=== PATIENT | male | born 1935 | race Caucasian/White ===

== ENCOUNTER 2018-12-02 19:53 | Emergency (ER) | payer OTHER, BC ==
--- NOTE | 2018-12-02 19:59 | PDOC ---
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 Pt reported he was walking down the stairs, and suddenly fell down 6 stairs. He denied head injury, LOC, vomiting, chest pain, shortness of breath. Pt admitted to right sided lateral chest wall pain, worse with inspiration and palpation. Pt admitted to drinking 2 beers tonight. Allergies: NKDA ETOH - denied every day use Past History - Past Medical History Allergies/Adverse Reactions: Allergies Allergy/AdvReac Type Severity Reaction Status Date / Time No Known Allergies Allergy Verified 12/02/18 20:16 Home Medications: Ambulatory Orders Unobtainable 12/03/18 Review of Systems - Review of Systems Able to Perform ROS?: Yes Comments:: 12/02/18 20:18 General: denied fever, chills, generalized weakness. HEENT: denied sore throat, rhinorrhea, ear pain. Heart: denied chest pain, palpitations, syncope, diaphoresis. Respiratory: denied shortness of breath, cough, sputum production, hemoptysis. Chest: Admitted to chest wall pain. Abdomen: denied abdominal pain, nausea, vomiting, diarrhea, constipation, blood in stool. : denied dysuria, increased urinary frequency, hematuria, urinary incontinence , flank pain. Back: denied back pain. Musculoskeletal: denied joint pain, muscle pain, joint swelling. Neurological: denied headache, dizziness, numbness, tingling, weakness. Skin: denied rash, laceration, abrasion. *Physical Exam - Physical Exam Comments: 12/02/18 20:18 Constitutional: Well-nourished, Well-developed, appearing stated age. HEENT: head is normocephalic, atraumatic. no scalp hemtoma. no sr sign. no raccoon eyes. no facial bone tenderness to palpation. EOMI. PERRLA. Neck: supple. Full ROM. no mildline c-spine tenderness to palpation. Heart: regular rhythm. no murmurs, rubs or gallops. Lungs: clear to auscultation bilaterally. no crackles, rhonchi or wheezing. no stridor. Abdomen: soft, nontender. normal bowel sounds. no rebound, guarding, masses. Extremities: peripheral pulses intact. no lower extremity edema. Back: no midline T-spine, L-spine tenderness to palpation. Hips: no tenderness to palpation of bilateral hips. no LE shortening or external rotation. Neurological: CN 2-12 grossly intact. moves all four extremities. Psych: awake, alert, oriented x3. follows commands. answers questions appropriately. Skin: no bruising to anterior/lateral/posterior chest wall or abdomen. Procedures - Bedside Ultrasound Bedside Ultrasound: Focused Assessment w/Sonography for Trauma (Negative FAST in RUQ/LUQ/suprapubic/subxiphoid views. Positive lung sliding bilaterally.) ED Treatment Course - LABORATORY CBC & Chemistry Diagram: 12/02/18 20:05 12/02/18 20:05 - RADIOLOGY Radiology Studies Ordered: 12/03/18 00:53 CT head noncontrast, CT cervical spine noncontrast, CT chest with IV contrast, CXR, pelvis XR Medical Decision Making - Medical Decision Making 12/02/18 20:20 83 year old male with above PMH presented to ED for mechanical fall down 6 stairs, complaining of right sided lateral chest wall pain. Examination significant for right sided lateral chest wall tenderness to palpation. Initial Vital Signs Temp Pulse Resp BP Pulse Ox 97.1 F L 102 H 19 173/80 H 96 12/02/18 19:53 12/02/18 19:53 12/02/18 19:53 12/02/18 19:53 12/02/18 19:53 Afebrile. Tachycardia. No tachypnea. Hypertensive. No hypoxia on room air. Vital Signs Pulse Rate 107 H 12/02/18 20:34 Respiratory Rate 16 12/02/18 20:34 Blood Pressure 156/91 12/02/18 20:34 O2 Sat by Pulse Oximetry (%) 97 12/02/18 20:34 HTN improved. EKG performed at 2037: rate 110, regular rhythm, normal axis, normal intervals, no acute ST changes. Labs ordered: CBC, CMP, trop, TSH, coags, ETOH level, UA/UC Imaging ordered: CT head noncon, CT cervical spine noncon, CT chest with IV contrast, pelvis XR, CXR Medications ordered: tylenol IV -Pt receiving 1L normal saline bolus from EMS 12/02/18 20:35 CBC WBC 7.4 K/mm3 (4.0-10.0) 12/02/18 20:05 RBC 3.95 M/mm3 (4.00-5.60) L 12/02/18 20:05 Hgb 12.3 GM/dL (11.7-16.9) 12/02/18 20:05 Hct 36.6 % (35.4-49) 12/02/18 20:05 MCV 92.8 fl (80-96) 12/02/18 20:05 MCH 31.2 pg (25.7-33.7) 12/02/18 20:05 MCHC 33.6 g/dl (32.0-35.9) 12/02/18 20:05 RDW 13.3 % (11.9-15.9) 12/02/18 20:05 Plt Count 166 K/MM3 (134-434) 12/02/18 20:05 MPV 7.8 fl (7.5-11.1) 12/02/18 20:05 Absolute Neuts (auto) 4.0 K/mm3 (1.5-8.0) 12/02/18 20:05 Neutrophils % 54.0 % (42.8-82.8) 12/02/18 20:05 Lymphocytes % 37.0 % (8-40) 12/02/18 20:05 Monocytes % 6.8 % (3.8-10.2) 12/02/18 20:05 Eosinophils % 1.8 % (0-4.5) 12/02/18 20:05 Basophils % 0.4 % (0-2.0) 12/02/18 20:05 Nucleated RBC % 0 % (0-0) 12/02/18 20:05 No leukocytosis. No anemia. INR, PTT INR 0.94 (0.83-1.09) 12/02/18 20:05 12/02/18 20:58 CMP Sodium 140 mmol/L (136-145) 12/02/18 20:05 Potassium 3.9 mmol/L (3.5-5.1) 12/02/18 20:05 Chloride 106 mmol/L (98-107) 12/02/18 20:05 Carbon Dioxide 25 mmol/L (21-32) 06/15/19 20:05 Anion Gap 10 MMOL/L (8-16) 12/02/18 20:05 BUN 16.2 mg/dL (7-18) 12/02/18 20:05 Creatinine 0.9 mg/dL (0.55-1.3) 12/02/18 20:05 Est GFR (CKD-EPI)AfAm 90.58 12/02/18 20:05 Est GFR (CKD-EPI)NonAf 78.15 12/02/18 20:05 Random Glucose 113 mg/dL (74-106) H 12/02/18 20:05 Calcium 8.2 mg/dL (8.5-10.1) L 12/02/18 20:05 Magnesium 2.2 mg/dL (1.8-2.4) 12/02/18 20:05 Total Bilirubin 0.1 mg/dL (0.2-1) L 12/02/18 20:05 AST 58 U/L (15-37) H 12/02/18 20:05 ALT 33 U/L (13-61) 12/02/18 20:05 Alkaline Phosphatase 96 U/L (45-117) 12/02/18 20:05 Troponin I < 0.02 ng/ml (0.00-0.05) 12/02/18 20:05 Total Protein 6.8 g/dl (6.4-8.2) 12/02/18 20:05 Albumin 3.2 g/dl (3.4-5.0) L 12/02/18 20:05 TSH 3.40 uIU/ml (0.358-3.74) 12/02/18 20:05 Corrected calcium 8.4 No electrolyte abnormalities. No VIRAJ. Mild AST elevation - consistent with ETOH use TSH wnl ETOH - 168 12/02/18 21:11 Urine Test Results Urine Color Yellow 12/02/18 20:40 Urine Appearance Clear 12/02/18 20:40 Urine pH 6.5 (5.0-8.0) 12/02/18 20:40 Ur Specific [place] 1.010 (1.010-1.035) 12/02/18 20:40 Urine Protein Negative (NEGATIVE) 12/02/18 20:40 Urine Glucose (UA) Negative (NEGATIVE) 12/02/18 20:40 Urine Ketones Negative (NEGATIVE) 12/02/18 20:40 Urine Blood Negative (NEGATIVE) 12/02/18 20:40 Urine Nitrite Negative (NEGATIVE) 12/02/18 20:40 Urine Bilirubin Negative (NEGATIVE) 12/02/18 20:40 Ur Leukocyte Esterase Negative (NEGATIVE) 12/02/18 20:40 Negative for UTI. 12/02/18 21:[address] Alegre's read: at least 3 right sided rib fractures. -Pending CT chest and official CXR report Medications ordered: Lidoderm patch 12/02/18 22:27 corporate technical recruiter asked to send CTs over to imaging dictaphone technician. 12/02/18 22:38 Imaging at imaging dictaphone technician. Pending official reads. 12/02/18 23:08 Pelvis XR my read: no fracture/dislocation. -Pending official read. 12/02/18 23:52 CT cervical spine report: HISTORY: Patient fell COMPARISON: None. FINDINGS: Negative for cervical spine fracture or malalignment. Degenerative changes. Small right-sided pneumothorax which will be discussed on the chest CT. One or more of the following dose reduction techniques were used: automated exposure control,adjustment of the mA and/or kV according to patient size, use of iterative reconstructive technique. CT chest report: FINDINGS: Positive for acute fractures of the right fourth, fifth, sixth, seventh, eighth, ninth and 10th ribs. The fractures are predominantly lateral and posterior. Some of the ribs are fractured in 2 places. Some of the rib fractures are displaced. There is a small to moderate right pleural effusion which measures transudate rather than blood. There is a very small resultant right-sided pneumothorax, probably less than 5%. Left lung is clear. No acute abnormalities of the mediastinal soft tissue/vessels. Advanced atherosclerotic changes descending thoracic aorta noted with plaque and intimal ulcerations. CT head report: FINDINGS: Involutional changes. No acute intracranial abnormality. No hemorrhage. Osseous structures are intact. Mucosal thickening and fluid in the bilateral maxillary and ethmoid sinuses. Mucosal thickening in the sphenoid and frontal sinuses Pt to be transferred to [place]. Transfer initiated. Pt placed on nonrebreather. 12/03/18 00:15 Dr. Alegre spoke with Dr. Saenz at [facility], pt accepted for transfer. Patient and family member at bedside informed. Pending transfer. 12/03/18 01:08 [address] route to [facility] with EMS. *DC/Admit/Observation/Transfer Diagnosis at time of Disposition: Multiple rib fractures, Fall, Alcohol intoxication, Elevated AST (SGOT), Pneumothorax - Discharge Dispostion Disposition: TRANSFER ACUTE CARE/OTHER HOSP Condition at time of disposition: Stable - Referrals Referrals: Chiara Li MD [Primary Care Provider] - - Patient Instructions Printed Discharge Instructions: Aspartate Aminotransferase, DI for Rib Fracture , How to Prevent Falls - Post Discharge Activity
[2018-12-02 20:16] VITALS: BMI 21.9
[2018-12-02 20:21] LABS: BASO % 0.4 % (0-2.0); EOS % 1.8 % (0-4.5); HEMATOCRIT 36.6 % (35.4-49); HEMOGLOBIN 12.3 GM/dL (11.7-16.9); MCH 31.2 pg (25.7-33.7); MCHC 33.6 g/dl (32.0-35.9); MEAN CELL VOLUME 92.8 fl (80-96); MEAN PLT VOLUME 7.8 fl (7.5-11.1); MONO % 6.8 % (3.8-10.2); PLATELET COUNT 166 K/MM3 (134-434); RBC 3.95 M/mm3 (4.00-5.60); RDW 13.3 % (11.9-15.9); WHITE BLOOD COUNT 7.4 K/mm3 (4.0-10.0)
--- NOTE | 2018-12-02 20:36 | PDOC ---
Documentation entered by Gene Goldstein SCRIBE, acting as scribe for Katarzyna Alegre DO. Katarzyna Alegre DO: This documentation has been prepared by the Triston farias Daniel, SCRIBE, under my direction and personally reviewed by me in its entirety. I confirm that the documentation accurately reflects all work, treatment, procedures, and medical decision making performed by me. Attending Attestation - Resident Resident Name: Nelly Knight - ED Attending Attestation I have performed the following: I have examined & evaluated the patient, The case was reviewed & discussed with the resident, I agree w/resident's findings & plan, Exceptions are as noted - HPI HPI: 12/02/18 20:20 The patient is an 83 year old male with a past medical history of pre diabetes and HTN here today for evaluation of chest pain s/p fall. The patient reports that he was walking down a flight of stairs when he suddenly fell midway down. He reports falling down approximately 4 stairs and hitting the right side of his chest. He notes right lateral chest pain at this time. Denies any head strike or loss of consciousness. Patient denies headache, lightheadedness. Denies fever, chills. Denies shortness of breath. Denies nausea, vomiting, diarrhea, abdominal pain. Allergies: NKA PCP: Chiara Li - Physicial Exam PE: 12/02/18 20:37 Constitutional: +strong smell of alcohol. Awake, alert, oriented. No acute distress. Head: Normocephalic. Atraumatic Eyes: PERRL. EOMI. Conjunctivae are not pale. ENT: Mucous membranes are moist and intact. Posterior pharynx without exudates or erythema. Uvula midline. Neck: Supple. Full ROM. No lymphadenopathy. Cardiovascular: +mild tachycardia. Regular rhythm. S1, S2 regular. Distal pulses are 2+ and symmetric. Pulmonary/Chest: No evidence of respiratory distress. Clear to auscultation bilaterally No wheezing, rales or rhonchi. Abdominal: Soft and non-distended. There is no tenderness. No rebound, guarding or rigidity. No organomegaly. No palpable masses. Good bowel sounds. Back: No CVA tenderness. Musculoskeletal: +tenderness along spine of right scapula. +tenderness of lateral right ribs. No edema. No cyanosis. No clubbing. Full range of motion in all extremities. No calf tenderness. Radial/pedal pulses are intact and 2+ bilaterally Skin: Skin is warm and dry. No petechiae. No purpura. Neurological: Alert and oriented to person, place, and time. Cranial nerves II -XII are grossly intact. Normal speech. Strength is grossly symmetric. No sensory deficits. Psychiatric: Good eye contact. Normal interaction, affect and behavior. - Medical Decision Making 12/02/18 20:36 I, Dr. Katarzyna Alegre, DO, attest that this document has been prepared under my direction and personally reviewed by me in its entirety. I further attest, that it accurately reflects all work, treatment, procedures and medical decision -making performed by me. 12/02/18 21:33 a/p: 83yo male with mechanical fall down the stairs today after drinking some beers -denies cp/sob/palpitations -no padilla, lightheaded, dizziness -pt denies hitting his head -denies neck or back pain -pt c/o R scapular pain and R lateral rib pain -no sob/cp -denies abd pain -no external signs of trauma -pt denies hip pain, moving all extremities equally -bedside EFAST: neg for ff, neg for pericardial effusion, neg for ptx -will send labs, head ct/c spine ct -ct chest given diffuse ttp along R lateral ribs -will add lidoderm patch -will check etoh level -will monitor and reassess 12/02/18 21:36 pt with multiple rib fx on the R, ct chest with iv contrast ordered etoh 168 12/02/18 21:37 ua neg for blood 12/02/18 23:57 no acute findings on the c spine ct 7 rib fx on the R with small r sided ptx <5% 12/03/18 00:[address] Saenz from trauma at [facility] - accepts pt in transfer 12/03/18 00:08 pt and family updated pt consents to transfer to [facility] 12/03/18 01:13 pt has left for [facility] *DC/Admit/Observation/Transfer Diagnosis at time of Disposition: Multiple rib fractures, Fall, Alcohol intoxication, Elevated AST (SGOT), Pneumothorax - Discharge Dispostion Disposition: TRANSFER ACUTE CARE/OTHER HOSP Condition at time of disposition: Stable - Referrals Referrals: Chiara Li MD [Primary Care Provider] - - Patient Instructions Printed Discharge Instructions: Aspartate Aminotransferase, DI for Rib Fracture , How to Prevent Falls - Post Discharge Activity - Transfer to Acute Care Facility Receiving Facility: [facility]. Accepting Physician:: Dr. Saenz Heart Score/ECG Review - ECG Intrepretation Comment:: 12/02/18 21:37 sinus tach at 110, nl axis, nl interval, q waves septally which are age indeterminate, no acute st/t wave findings
[2018-12-02 20:39] LABS: INR 0.94 (0.83-1.09); PROTHROMBIN TIME (PATIENT) 11.1 SEC (9.7-13.0)
[2018-12-02 20:42] LABS: ACTIVATED PTT 21.7 SECONDS (25.2-36.5)
[2018-12-02] MEDS ORDERED: ACETAMINOPHEN 1000 MG/100 ML VIAL (NON FORMULARY) IVPB ONE (20:50)
[2018-12-02 20:51] LABS: PH,URINE 6.5 (5.0-8.0); URINE APPEARANCE CLEAR; URINE BILIRUBIN NEGATIVE (NEGATIVE); URINE COLOR YELLOW; URINE GLUCOSE (UA) NEGATIVE (NEGATIVE); URINE KETONE NEGATIVE (NEGATIVE); URINE LEUK ESTERASE NEGATIVE (NEGATIVE); URINE NITRITE NEGATIVE (NEGATIVE); URINE PROTEIN NEGATIVE (NEGATIVE); URINE UROBILINOGEN 0.2 mg/dL (0.2-1.0)
[2018-12-02 20:55] LABS: ALBUMIN 3.2 g/dl (3.4-5.0); ALK PHOS 96 U/L (45-117); ANION GAP 10 MMOL/L (8-16); BILIRUBIN,TOTAL 0.1 mg/dL (0.2-1); BLOOD UREA NITROGEN 16.2 mg/dL (7-18); CALCIUM 8.2 mg/dL (8.5-10.1); CHLORIDE 106 mmol/L (98-107); CO2 25 mmol/L (21-32); CREATININE 0.9 mg/dL (0.55-1.3); GLUCOSE,RANDOM 113 mg/dL (74-106); MAGNESIUM 2.2 mg/dL (1.8-2.4); POTASSIUM 3.9 mmol/L (3.5-5.1); SGOT/AST 58 U/L (15-37); SGPT/ALT 33 U/L (13-61); SODIUM 140 mmol/L (136-145); TOT PROT 6.8 g/dl (6.4-8.2)
[2018-12-02] MEDS ORDERED: ACETAMINOPHEN INJECTION 100 ML IVPB ONE (20:57)
[2018-12-02] MEDS ORDERED: LIDOCAINE 5% TOPICAL PATCH TP ONE (21:16)
[2018-12-02] MEDS ORDERED: SODIUM CHLORIDE 500 ML IV STA (21:23)
[2018-12-02] MEDS ORDERED: LIDOCAINE PATCH REMOVAL MC SCH (22:00)
[2018-12-02] MEDS ORDERED: LIDOCAINE 5% TOPICAL PATCH ONE (22:19)
[2018-12-03 00:18] VITALS: BP 153/80; PULSE 110; TEMP 98.2
--- NOTE | 2018-12-03 17:01 | EKG ---
Test Reason : Blood Pressure : / mmHG Vent. Rate : 110 BPM Atrial Rate : 110 BPM P-R Int : 176 ms QRS Dur : 080 ms QT Int : 332 ms P-R-T Axes : 033 001 022 degrees QTc Int : 449 ms POOR DATA QUALITY, INTERPRETATION MAY BE ADVERSELY AFFECTED SINUS TACHYCARDIA WITH PREMATURE ATRIAL COMPLEXES WITH ABERRANT CONDUCTION NONSPECIFIC ST ABNORMALITY ABNORMAL ECG NO PREVIOUS ECGS AVAILABLE Confirmed by MD DARLEEN, RYLEE ([id number]) on 12/03/2018 5:01:12 PM Referred By: Confirmed By:RYLEE MOREJON MD
== END 2018-12-03 01:31 | disposition short-term general hospital (02) ==
LOC: JER 19:53
PROC: 3E0337Z Introduction of Electrolytic and Water Balance Substance into Peripheral Vein, Percutaneous Approach (ICD-10-PCS; principal; 2018-12-02)
PROC: 3E033NZ Introduction of Analgesics, Hypnotics, Sedatives into Peripheral Vein, Percutaneous Approach (ICD-10-PCS; 2018-12-02)
DX: S22.41XA Multiple fractures of ribs, right side, initial encounter for closed fracture (principal); S27.0XXA Traumatic pneumothorax, initial encounter; W10.8XXA Fall (on) (from) other stairs and steps, initial encounter; Y93.89 Activity, other specified; Y92.018 Other place in single-family (private) house as the place of occurrence of the external cause; Y99.8 Other external cause status; F10.120 Alcohol abuse with intoxication, uncomplicated; R94.5 Abnormal results of liver function studies; I10 Essential (primary) hypertension; R73.03 Prediabetes
CPT/HCPCS: 36415; 70450-TC; 71045-TC-FY; 71260-TC; 72125-TC; 72170-TC-FY; 80053; 80307; 81003; 83735; 84443; 84484; 85025; 85610; 85730; 87086; 93005; 93010; 96361; 96374; 99285-25; J0131; J7030

== ENCOUNTER 2021-02-20 11:49 | Inpatient (IN) | payer OTHER, BC ==
[2021-02-20 13:37] LABS: BASO % 0.4 % (0-2.0); EOS % 0.1 % (0-4.5); HEMATOCRIT 41.4 % (35.4-49); HEMOGLOBIN 14.9 GM/dL (11.7-16.9); LYMPH % 14.8 % (8-40); MCH 31.9 pg (25.7-33.7); MCHC 36.1 g/dl (32.0-35.9); MEAN CELL VOLUME 88.5 fl (80-96); MEAN PLT VOLUME 8.5 fl (7.5-11.1); MONO % 8.7 % (3.8-10.2); PLATELET COUNT 248 10^3/uL (134-434); RBC 4.69 M/mm3 (4.00-5.60); RDW 12.9 % (11.9-15.9); WHITE BLOOD COUNT 10.7 K/mm3 (4.0-10.0)
[2021-02-20 13:44] LABS: INR 1.06 (0.83-1.09); PROTHROMBIN TIME (PATIENT) 12.8 SEC (9.7-13.0)
[2021-02-20 13:45] LABS: EPI CELLS 11 /uL (0-25.1); HYALINE CASTS 2 /uL (0-3.1); PH,URINE 6.5 (5.0-8.0); URINE APPEARANCE CLEAR; URINE BACTERIA 9 /uL (0-1359); URINE BILIRUBIN NEGATIVE (NEGATIVE); URINE COLOR YELLOW; URINE GLUCOSE (UA) NEGATIVE (NEGATIVE); URINE KETONE TRACE (NEGATIVE); URINE LEUK ESTERASE NEGATIVE (NEGATIVE); URINE NITRITE NEGATIVE (NEGATIVE); URINE PROTEIN 2+ (NEGATIVE); URINE RBC 9 /uL (0-23.9); URINE UROBILINOGEN 0.2 mg/dL (0.2-1.0); URINE WBC 7 /uL (0-25.8)
[2021-02-20 13:46] LABS: ACTIVATED PTT 30.3 SECONDS (25.2-36.5)
[2021-02-20 13:59] LABS: CHLORIDE 89 mmol/L (98-107); SODIUM 132 mmol/L (136-145)
[2021-02-20 14:01] LABS: ALBUMIN 3.5 g/dl (3.4-5.0); BLOOD UREA NITROGEN 30.4 mg/dL (7-18); CALCIUM 9.1 mg/dL (8.5-10.1); CO2 31 mmol/L (21-32); GLUCOSE,RANDOM 116 mg/dL (74-106); MAGNESIUM 2.5 mg/dL (1.8-2.4)
[2021-02-20] MEDS ORDERED: SODIUM CHLORIDE 0.9% 500 ML INFUS.BAG IV ONE (14:01)
[2021-02-20] MEDS ORDERED: MULTIVITAMINS (DAILY MVI) TABLET (FP) PO ONE (14:02)
[2021-02-20] MEDS ORDERED: THIAMINE HCL 200 MG/2 ML VIAL IVPB ONE (14:02)
[2021-02-20] MEDS ORDERED: FOLIC ACID 1 MG TABLET (FP) PO ONE (14:02)
[2021-02-20 14:04] LABS: CREATININE 2.3 mg/dL (0.55-1.3); SGOT/AST 30 U/L (15-37); SGPT/ALT 20 U/L (13-61)
[2021-02-20 14:06] LABS: BILIRUBIN,TOTAL 0.6 mg/dL (0.2-1); TOT PROT 7.8 g/dl (6.4-8.2)
[2021-02-20 14:07] LABS: ALK PHOS 146 U/L (45-117)
[2021-02-20] MEDS ORDERED: THIAMINE HCL 200 MG/2 ML VIAL ONE (14:08)
[2021-02-20] MEDS ORDERED: FOLIC ACID 1 MG TABLET (FP) ONE (14:08)
[2021-02-20] MEDS ORDERED: MULTIVITAMINS (DAILY MVI) TABLET (FP) ONE (14:08)
[2021-02-20] MEDS ORDERED: amLODIPine BESYLATE 10 MG TABLET (FP) PO ONE (14:26)
[2021-02-20 14:28] LABS: ANION GAP 12 MMOL/L (8-16)
[2021-02-20] MEDS ORDERED: POTASSIUM CHLORIDE TABS 20 MEQ TABLET.ER (FP) PO ONE ×4 (14:40→19:37)
[2021-02-20] MEDS ORDERED: amLODIPine BESYLATE 5 MG TABLET (FP) ONE (15:06)
[2021-02-20 18:22] LABS: CHLORIDE 93 mmol/L (98-107); SODIUM 134 mmol/L (136-145)
[2021-02-20 18:23] LABS: CALCIUM 8.3 mg/dL (8.5-10.1)
[2021-02-20 18:24] LABS: BLOOD UREA NITROGEN 28.5 mg/dL (7-18); CO2 27 mmol/L (21-32); GLUCOSE,RANDOM 97 mg/dL (74-106)
[2021-02-20 18:27] LABS: CREATININE 2.1 mg/dL (0.55-1.3)
[2021-02-20 18:48] LABS: ANION GAP 14 MMOL/L (8-16)
[2021-02-20] MEDS ORDERED: KCL 10 MEQ IVPB 10 MEQ/100 ML INFUS.BAG IVPB ONE (19:37)
[2021-02-20] MEDS: KCL 10 MEQ IVPB 10 MEQ/100 ML INFUS.BAG IVPB SCH ×3 (19:50→22:57)
[2021-02-20] MEDS ORDERED: KCL 10 MEQ IVPB 20 MEQ/200 ML INFUS.BAG IVPB ONE (20:59)
[2021-02-20] MEDS: HEPARIN NA (PORCINE) 5,000 UNITS/ML 1ML VIAL SQ SCH (22:57)
[2021-02-20] MEDS: METOPROLOL TARTRATE 25 MG TABLET (FP) PO SCH (22:57)
[2021-02-21 06:39] LABS: BASO % 0.3 % (0-2.0); EOS % 0.4 % (0-4.5); HEMATOCRIT 39.8 % (35.4-49); HEMOGLOBIN 14.4 GM/dL (11.7-16.9); MCH 32.1 pg (25.7-33.7); MCHC 36.2 g/dl (32.0-35.9); MEAN CELL VOLUME 88.5 fl (80-96); MEAN PLT VOLUME 8.5 fl (7.5-11.1); MONO % 8.7 % (3.8-10.2); NEUT % 73.6 % (42.8-82.8); PLATELET COUNT 246 10^3/uL (134-434); RBC 4.49 M/mm3 (4.00-5.60); RDW 13.3 % (11.9-15.9); WHITE BLOOD COUNT 10.9 K/mm3 (4.0-10.0)
[2021-02-21 07:03] LABS: ALBUMIN 3.1 g/dl (3.4-5.0); CALCIUM 8.1 mg/dL (8.5-10.1)
[2021-02-21 07:04] LABS: BLOOD UREA NITROGEN 21.1 mg/dL (7-18); MAGNESIUM 2.2 mg/dL (1.8-2.4)
[2021-02-21 07:06] LABS: CREATININE 1.7 mg/dL (0.55-1.3); PHOSPHOROUS 2.2 mg/dL (2.5-4.9)
[2021-02-21 07:08] LABS: BILIRUBIN,TOTAL 0.5 mg/dL (0.2-1); TOT PROT 7.3 g/dl (6.4-8.2)
[2021-02-21] MEDS: HEPARIN NA (PORCINE) 5,000 UNITS/ML 1ML VIAL SQ SCH ×2 (10:11→21:14)
[2021-02-21] MEDS: METOPROLOL TARTRATE 25 MG TABLET (FP) PO SCH ×2 (10:11→21:14)
[2021-02-21] MEDS: POTASSIUM CHLORIDE TABS 20 MEQ TABLET.ER (FP) PO SCH (21:14)
[2021-02-22 07:21] LABS: CALCIUM 8.9 mg/dL (8.5-10.1)
[2021-02-22 07:22] LABS: BLOOD UREA NITROGEN 22.3 mg/dL (7-18)
[2021-02-22 07:25] LABS: CREATININE 1.8 mg/dL (0.55-1.3)
[2021-02-22] MEDS: METOPROLOL TARTRATE 25 MG TABLET (FP) PO SCH ×3 (08:01→21:19)
[2021-02-22] MEDS: POTASSIUM CHLORIDE TABS 20 MEQ TABLET.ER (FP) PO SCH ×3 (08:01→21:19)
[2021-02-22] MEDS: HEPARIN NA (PORCINE) 5,000 UNITS/ML 1ML VIAL SQ SCH ×2 (10:00→21:19)
[2021-02-22 10:44] LABS: EOS % 0.7 % (0-4.5); HEMATOCRIT 44.3 % (35.4-49); HEMOGLOBIN 15.6 GM/dL (11.7-16.9); LYMPH % 20.5 % (8-40); MCH 31.7 pg (25.7-33.7); MCHC 35.3 g/dl (32.0-35.9); MEAN CELL VOLUME 89.9 fl (80-96); MEAN PLT VOLUME 9.4 fl (7.5-11.1); MONO % 8.2 % (3.8-10.2); NEUT % 69.6 % (42.8-82.8); PLATELET COUNT 270 10^3/uL (134-434); RBC 4.93 M/mm3 (4.00-5.60); RDW 13.4 % (11.9-15.9)
[2021-02-22 10:54] LABS: MAGNESIUM 2.2 mg/dL (1.8-2.4)
[2021-02-22] MEDS ORDERED: MULTIVIT INJ. ADULT COMBO WITH VIT K 1 COMBO 10 ML VIAL IV SCH (14:30)
[2021-02-22] MEDS ORDERED: LORazepam 1 MG TABLET PO PRN (14:41)
[2021-02-22] MEDS: THIAMINE HCL 200 MG/2 ML VIAL IVPB SCH (16:18)
[2021-02-22] MEDS: amLODIPine BESYLATE 5 MG TABLET (FP) PO SCH (16:18)
[2021-02-23] MEDS: ACETAMINOPHEN 325 MG TABLET (FP) PO PRN ×3 (06:41→23:21)
[2021-02-23 06:43] LABS: BASO % 0.5 % (0-2.0); EOS % 1.5 % (0-4.5); HEMATOCRIT 39.6 % (35.4-49); HEMOGLOBIN 14.3 GM/dL (11.7-16.9); LYMPH % 31.3 % (8-40); MCH 32.1 pg (25.7-33.7); MCHC 36.1 g/dl (32.0-35.9); MEAN CELL VOLUME 88.9 fl (80-96); MEAN PLT VOLUME 8.8 fl (7.5-11.1); MONO % 8.5 % (3.8-10.2); NEUT % 58.2 % (42.8-82.8); PLATELET COUNT 235 10^3/uL (134-434); RBC 4.45 M/mm3 (4.00-5.60); RDW 13.3 % (11.9-15.9); WHITE BLOOD COUNT 8.7 K/mm3 (4.0-10.0)
[2021-02-23 06:59] LABS: BLOOD UREA NITROGEN 22.9 mg/dL (7-18); CALCIUM 8.5 mg/dL (8.5-10.1)
[2021-02-23 07:02] LABS: CREATININE 1.7 mg/dL (0.55-1.3)
[2021-02-23] MEDS: HEPARIN NA (PORCINE) 5,000 UNITS/ML 1ML VIAL SQ SCH ×2 (09:00→21:28)
[2021-02-23] MEDS: POTASSIUM CHLORIDE TABS 20 MEQ TABLET.ER (FP) PO SCH ×2 (09:00→21:28)
[2021-02-23] MEDS: amLODIPine BESYLATE 5 MG TABLET (FP) PO SCH (09:00)
[2021-02-23] MEDS: THIAMINE HCL 200 MG/2 ML VIAL IVPB SCH (09:01)
[2021-02-23] MEDS: METOPROLOL TARTRATE 25 MG TABLET (FP) PO SCH ×2 (09:01→21:05)
[2021-02-24 07:11] LABS: BASO % 0.3 % (0-2.0); EOS % 0.7 % (0-4.5); HEMOGLOBIN 15.6 GM/dL (11.7-16.9); LYMPH % 13.2 % (8-40); MCH 31.6 pg (25.7-33.7); MCHC 34.8 g/dl (32.0-35.9); MEAN CELL VOLUME 90.8 fl (80-96); MEAN PLT VOLUME 9.1 fl (7.5-11.1); MONO % 5.7 % (3.8-10.2); NEUT % 80.1 % (42.8-82.8); PLATELET COUNT 211 10^3/uL (134-434); RBC 4.96 M/mm3 (4.00-5.60); RDW 13.6 % (11.9-15.9); WHITE BLOOD COUNT 14.1 K/mm3 (4.0-10.0)
[2021-02-24 07:42] LABS: BLOOD UREA NITROGEN 19.2 mg/dL (7-18); CALCIUM 8.7 mg/dL (8.5-10.1)
[2021-02-24 07:46] LABS: CREATININE 1.5 mg/dL (0.55-1.3)
[2021-02-24] MEDS: HEPARIN NA (PORCINE) 5,000 UNITS/ML 1ML VIAL SQ SCH ×2 (09:45→21:37)
[2021-02-24] MEDS: THIAMINE HCL 200 MG/2 ML VIAL IVPB SCH (09:45)
[2021-02-24] MEDS: METOPROLOL TARTRATE 25 MG TABLET (FP) PO SCH ×2 (09:45→21:36)
[2021-02-24] MEDS: amLODIPine BESYLATE 5 MG TABLET (FP) PO SCH (09:45)
[2021-02-24] MEDS: POTASSIUM CHLORIDE TABS 20 MEQ TABLET.ER (FP) PO SCH ×2 (09:45→21:37)
[2021-02-24] MEDS: VALSARTAN 160 MG TABLET PO SCH (11:53)
[2021-02-25 06:59] LABS: BASO % 0.4 % (0-2.0); EOS % 0.9 % (0-4.5); HEMATOCRIT 39.1 % (35.4-49); HEMOGLOBIN 13.7 GM/dL (11.7-16.9); LYMPH % 17.2 % (8-40); MCH 31.8 pg (25.7-33.7); MEAN CELL VOLUME 90.9 fl (80-96); MEAN PLT VOLUME 8.3 fl (7.5-11.1); MONO % 6.8 % (3.8-10.2); NEUT % 74.7 % (42.8-82.8); PLATELET COUNT 206 10^3/uL (134-434); RBC 4.29 M/mm3 (4.00-5.60); RDW 13.5 % (11.9-15.9); WHITE BLOOD COUNT 9.8 K/mm3 (4.0-10.0)
[2021-02-25 07:13] LABS: ALBUMIN 2.6 g/dl (3.4-5.0); BLOOD UREA NITROGEN 22.1 mg/dL (7-18); CALCIUM 8.5 mg/dL (8.5-10.1)
[2021-02-25 07:17] LABS: CREATININE 1.5 mg/dL (0.55-1.3)
[2021-02-25 07:18] LABS: BILIRUBIN,TOTAL 0.7 mg/dL (0.2-1); TOT PROT 6.5 g/dl (6.4-8.2)
[2021-02-25] MEDS ORDERED: PT OWN MED DRAWER 7, Y5N ONE ×3 (10:10→19:38)
[2021-02-25] MEDS: HEPARIN NA (PORCINE) 5,000 UNITS/ML 1ML VIAL SQ SCH ×2 (10:11→22:31)
[2021-02-25] MEDS: POTASSIUM CHLORIDE TABS 20 MEQ TABLET.ER (FP) PO SCH ×2 (10:11→22:31)
[2021-02-25] MEDS: METOPROLOL TARTRATE 25 MG TABLET (FP) PO SCH ×2 (10:11→22:31)
[2021-02-25] MEDS: amLODIPine BESYLATE 5 MG TABLET (FP) PO SCH (10:11)
[2021-02-25] MEDS: VALSARTAN 160 MG TABLET PO SCH (11:15)
[2021-02-25] MEDS: THIAMINE HCL 200 MG/2 ML VIAL IVPB SCH (11:19)
[2021-02-26 07:02] LABS: BASO % 0.3 % (0-2.0); EOS % 0.8 % (0-4.5); HEMOGLOBIN 13.2 GM/dL (11.7-16.9); LYMPH % 15.9 % (8-40); MCH 31.8 pg (25.7-33.7); MCHC 34.8 g/dl (32.0-35.9); MEAN CELL VOLUME 91.2 fl (80-96); MEAN PLT VOLUME 8.4 fl (7.5-11.1); MONO % 6.1 % (3.8-10.2); NEUT % 76.9 % (42.8-82.8); PLATELET COUNT 209 10^3/uL (134-434); RBC 4.16 M/mm3 (4.00-5.60); RDW 13.2 % (11.9-15.9); WHITE BLOOD COUNT 9.9 K/mm3 (4.0-10.0)
[2021-02-26 07:23] LABS: ALBUMIN 2.5 g/dl (3.4-5.0); BLOOD UREA NITROGEN 24.1 mg/dL (7-18); CALCIUM 8.6 mg/dL (8.5-10.1)
[2021-02-26 07:24] LABS: MAGNESIUM 2.4 mg/dL (1.8-2.4)
[2021-02-26 07:27] LABS: CREATININE 1.4 mg/dL (0.55-1.3); PHOSPHOROUS 2.8 mg/dL (2.5-4.9)
[2021-02-26 07:28] LABS: BILIRUBIN,TOTAL 0.4 mg/dL (0.2-1); TOT PROT 6.4 g/dl (6.4-8.2)
[2021-02-26] MEDS ORDERED: PT OWN MED DRAWER 7, Y5N ONE ×2 (09:39→11:53)
[2021-02-26] MEDS: HEPARIN NA (PORCINE) 5,000 UNITS/ML 1ML VIAL SQ SCH (09:44)
[2021-02-26] MEDS: METOPROLOL TARTRATE 25 MG TABLET (FP) PO SCH (09:44)
[2021-02-26] MEDS: amLODIPine BESYLATE 5 MG TABLET (FP) PO SCH (09:44)
[2021-02-26] MEDS: POTASSIUM CHLORIDE TABS 20 MEQ TABLET.ER (FP) PO SCH (09:44)
[2021-02-26] MEDS: THIAMINE HCL 200 MG/2 ML VIAL IVPB SCH (09:45)
[2021-02-26] MEDS: VALSARTAN 160 MG TABLET PO SCH (11:55)
[2021-02-26 12:45] LABS: EPI CELLS 12 /uL (0-25.1); HYALINE CASTS 4 /uL (0-3.1); PH,URINE 5.5 (5.0-8.0); URINE APPEARANCE CLEAR; URINE BACTERIA 9 /uL (0-1359); URINE BILIRUBIN NEGATIVE (NEGATIVE); URINE COLOR YELLOW; URINE GLUCOSE (UA) NEGATIVE (NEGATIVE); URINE KETONE TRACE (NEGATIVE); URINE LEUK ESTERASE NEGATIVE (NEGATIVE); URINE NITRITE NEGATIVE (NEGATIVE); URINE PROTEIN 2+ (NEGATIVE); URINE RBC 40 /uL (0-23.9); URINE WBC 14 /uL (0-25.8)
[2021-02-26 19:03] VITALS: TEMP 98
[2021-02-27] MEDS: HEPARIN NA (PORCINE) 5,000 UNITS/ML 1ML VIAL SQ SCH ×2 (00:21→11:58)
[2021-02-27] MEDS: METOPROLOL TARTRATE 25 MG TABLET (FP) PO SCH ×2 (00:21→11:58)
[2021-02-27] MEDS ORDERED: PT OWN MED DRAWER 7, Y5N ONE (09:20)
[2021-02-27] MEDS: amLODIPine BESYLATE 5 MG TABLET (FP) PO SCH (11:58)
[2021-02-27] MEDS: VALSARTAN 160 MG TABLET PO SCH (11:58)
[2021-02-27] MEDS: THIAMINE HCL 200 MG/2 ML VIAL IVPB SCH (11:58)
[2021-02-27 13:08] VITALS: BMI 22.8
[2021-02-27 19:11] VITALS: BP 148/83; PULSE 80
[2021-02-28] MEDS ORDERED: MULTIVITAMINS (DAILY MVI) TABLET (FP) PO SCH (10:00)
== END 2021-02-27 20:07 | DRG 683 ==
LOC: JER 11:49 → JERBED 14:00 → J2W 22:41
PROVIDERS: ADMIT Family Medicine; ATTEND Family Medicine
DX: N17.9 Acute kidney failure, unspecified (principal); E46 Unspecified protein-calorie malnutrition; I45.2 Bifascicular block; E87.1 Hypo-osmolality and hyponatremia; I10 Essential (primary) hypertension; F10.10 Alcohol abuse, uncomplicated; R73.03 Prediabetes; E87.6 Hypokalemia; E86.0 Dehydration; D72.829 Elevated white blood cell count, unspecified; R94.31 Abnormal electrocardiogram [ECG] [EKG]; E86.9 Volume depletion, unspecified; I45.10 Unspecified right bundle-branch block; I44.4 Left anterior fascicular block
CPT/HCPCS: 36415; 70450-TC; 71045-TC-FY; 72125-TC; 72131-TC; 72148-TC; 76775-TC; 76856-TC; 80048; 80053; 80307; 81003; 82550; 82553; 83735; 83880; 84100; 84443; 84484; 85025; 85610; 85730; 87077; 87086; 93005; 93010; 93306-TC; 97116-GP; 97161-GP; 99285-25; C9803; J1644; U0003; U0005

== ENCOUNTER 2021-02-28 01:01 | Observation (INO) | payer OTHER, BC ==
[2021-02-28 01:21] VITALS: BMI 27.4
[2021-02-28] MEDS ORDERED: SODIUM CHLORIDE 0.9% 500 ML INFUS.BAG IV ONE ×4 (02:15→19:35)
[2021-02-28 03:19] LABS: BASO % 0.2 % (0-2.0); EOS % 0.1 % (0-4.5); HEMATOCRIT 44.8 % (35.4-49); HEMOGLOBIN 15.4 GM/dL (11.7-16.9); LYMPH % 8.5 % (8-40); MCH 31.5 pg (25.7-33.7); MCHC 34.4 g/dl (32.0-35.9); MEAN CELL VOLUME 91.8 fl (80-96); MEAN PLT VOLUME 9.2 fl (7.5-11.1); MONO % 6.4 % (3.8-10.2); NEUT % 84.8 % (42.8-82.8); PLATELET COUNT 260 10^3/uL (134-434); RBC 4.88 M/mm3 (4.00-5.60); RDW 13.6 % (11.9-15.9); WHITE BLOOD COUNT 14.1 K/mm3 (4.0-10.0)
[2021-02-28 03:36] LABS: INR 1.03 (0.83-1.09); PROTHROMBIN TIME (PATIENT) 12.7 SEC (9.7-13.0)
[2021-02-28 03:38] LABS: ACTIVATED PTT 32.7 SECONDS (25.2-36.5)
[2021-02-28 03:44] LABS: CHLORIDE 101 mmol/L (98-107); SODIUM 131 mmol/L (136-145)
[2021-02-28 03:46] LABS: ALBUMIN 2.5 g/dl (3.4-5.0); CO2 22 mmol/L (21-32)
[2021-02-28 03:47] LABS: BLOOD UREA NITROGEN 28.8 mg/dL (7-18); GLUCOSE,RANDOM 142 mg/dL (74-106)
[2021-02-28 03:50] LABS: CREATININE 1.7 mg/dL (0.55-1.3)
[2021-02-28 03:51] LABS: TOT PROT 8.2 g/dl (6.4-8.2)
[2021-02-28 03:52] LABS: ALK PHOS 132 U/L (45-117)
[2021-02-28 04:19] LABS: LACTIC ACID 2.8 mmol/L (0.4-2.0)
[2021-02-28 04:56] LABS: ANION GAP 8 MMOL/L (8-16); SGOT/AST 98 U/L (15-37)
[2021-02-28 06:04] LABS: EPI CELLS 12 /uL (0-25.1); HYALINE CASTS 2 /uL (0-3.1); URINE APPEARANCE CLEAR; URINE BACTERIA 6 /uL (0-1359); URINE BILIRUBIN NEGATIVE (NEGATIVE); URINE COLOR YELLOW; URINE GLUCOSE (UA) NEGATIVE (NEGATIVE); URINE KETONE NEGATIVE (NEGATIVE); URINE LEUK ESTERASE NEGATIVE (NEGATIVE); URINE NITRITE NEGATIVE (NEGATIVE); URINE PROTEIN 1+ (NEGATIVE); URINE RBC 23 /uL (0-23.9); URINE UROBILINOGEN 0.2 mg/dL (0.2-1.0); URINE WBC 7 /uL (0-25.8)
[2021-02-28 07:13] LABS: BLOOD UREA NITROGEN 30.7 mg/dL (7-18); CALCIUM 8.4 mg/dL (8.5-10.1)
[2021-02-28 07:17] LABS: CREATININE 1.4 mg/dL (0.55-1.3)
[2021-02-28] MEDS ORDERED: ACETAMINOPHEN 325 MG TABLET (FP) PO PRN (11:02)
[2021-02-28] MEDS: amLODIPine BESYLATE 5 MG TABLET (FP) PO SCH (11:30)
[2021-02-28] MEDS: VALSARTAN 160 MG TABLET PO SCH (11:30)
[2021-02-28] MEDS ORDERED: VALSARTAN 80 MG TABLET ONE (11:53)
[2021-02-28] MEDS ORDERED: amLODIPine BESYLATE 2.5 MG TABLET (FP) ONE (12:06)
[2021-02-28 14:24] LABS: BASO % 0.3 % (0-2.0); EOS % 0.3 % (0-4.5); HEMATOCRIT 40.6 % (35.4-49); HEMOGLOBIN 13.7 GM/dL (11.7-16.9); MCH 31.1 pg (25.7-33.7); MCHC 33.8 g/dl (32.0-35.9); MEAN CELL VOLUME 91.9 fl (80-96); MEAN PLT VOLUME 8.3 fl (7.5-11.1); MONO % 6.7 % (3.8-10.2); NEUT % 81.7 % (42.8-82.8); PLATELET COUNT 235 10^3/uL (134-434); RBC 4.41 M/mm3 (4.00-5.60); RDW 13.4 % (11.9-15.9); WHITE BLOOD COUNT 12.7 K/mm3 (4.0-10.0)
[2021-02-28] MEDS ORDERED: METOPROLOL TARTRATE 25 MG TABLET (FP) PO ONE (19:33)
[2021-02-28] MEDS ORDERED: METOPROLOL TARTRATE 25 MG TABLET (FP) ONE (19:50)
[2021-02-28] MEDS ORDERED: METOPROLOL TARTRATE 5 MG/5 ML VIAL IVPUSH ONE (21:39)
[2021-02-28] MEDS ORDERED: PANTOPRAZOLE SODIUM 40 MG VIAL IVPUSH ONE (21:45)
[2021-02-28] MEDS ORDERED: METOPROLOL TARTRATE 25 MG TABLET (FP) PO SCH (22:00)
[2021-02-28] MEDS ORDERED: METOPROLOL TARTRATE 5 MG/5 ML VIAL ONE (22:23)
[2021-02-28] MEDS ORDERED: PANTOPRAZOLE SODIUM 40 MG VIAL ONE (22:24)
[2021-03-01] MEDS ORDERED: METOPROLOL TARTRATE 50 MG TABLET (FP) ONE (09:50)
[2021-03-01] MEDS ORDERED: amLODIPine BESYLATE 5 MG TABLET (FP) ONE (09:50)
[2021-03-01] MEDS ORDERED: VALSARTAN 80 MG TABLET ONE (09:50)
[2021-03-01] MEDS ORDERED: HEPARIN NA (PORCINE) 5,000 UNITS/ML 1ML VIAL ONE (09:51)
[2021-03-01] MEDS: METOPROLOL TARTRATE 50 MG TABLET (FP) PO SCH ×2 (09:57→22:53)
[2021-03-01] MEDS: HEPARIN NA (PORCINE) 5,000 UNITS/ML 1ML VIAL SQ SCH ×2 (09:57→22:53)
[2021-03-01] MEDS: VALSARTAN 160 MG TABLET PO SCH (09:57)
[2021-03-01] MEDS: amLODIPine BESYLATE 5 MG TABLET (FP) PO SCH (09:57)
[2021-03-01 10:13] LABS: BASO % 0.1 % (0-2.0); EOS % 0.1 % (0-4.5); HEMATOCRIT 36.6 % (35.4-49); HEMOGLOBIN 12.4 GM/dL (11.7-16.9); LYMPH % 8.8 % (8-40); MCH 31.3 pg (25.7-33.7); MEAN CELL VOLUME 92.1 fl (80-96); MEAN PLT VOLUME 8.2 fl (7.5-11.1); MONO % 5.2 % (3.8-10.2); NEUT % 85.8 % (42.8-82.8); PLATELET COUNT 237 10^3/uL (134-434); RBC 3.97 M/mm3 (4.00-5.60); RDW 13.8 % (11.9-15.9)
[2021-03-01 10:31] LABS: CHLORIDE 105 mmol/L (98-107); SODIUM 139 mmol/L (136-145)
[2021-03-01 10:33] LABS: CALCIUM 8.8 mg/dL (8.5-10.1)
[2021-03-01 10:34] LABS: ALBUMIN 2.4 g/dl (3.4-5.0); ANION GAP 9 MMOL/L (8-16); BLOOD UREA NITROGEN 20.6 mg/dL (7-18); CO2 25 mmol/L (21-32); GLUCOSE,RANDOM 86 mg/dL (74-106); LIPASE 76 U/L (73-393)
[2021-03-01 10:37] LABS: CREATININE 0.9 mg/dL (0.55-1.3); SGOT/AST 18 U/L (15-37); SGPT/ALT 19 U/L (13-61)
[2021-03-01 10:38] LABS: BILIRUBIN,TOTAL 0.5 mg/dL (0.2-1)
[2021-03-01 10:39] LABS: TOT PROT 6.3 g/dl (6.4-8.2)
[2021-03-01 10:40] LABS: ALK PHOS 109 U/L (45-117)
[2021-03-01] MEDS ORDERED: THIAMINE HCL 200 MG/2 ML VIAL IM ONE (11:05)
[2021-03-01] MEDS ORDERED: THIAMINE HCL 200 MG/2 ML VIAL ONE (12:51)
[2021-03-01] MEDS ORDERED: PANTOPRAZOLE SODIUM 40 MG/100 ML BAG IVPB ONE (12:51)
[2021-03-01] MEDS ORDERED: FOLIC ACID 1 MG TABLET (FP) ONE (12:51)
[2021-03-01] MEDS: FOLIC ACID 1 MG TABLET (FP) PO SCH (13:01)
[2021-03-01] MEDS: PANTOPRAZOLE SODIUM 40 MG VIAL IVPUSH SCH (13:01)
[2021-03-02 07:34] LABS: BASO % 0.2 % (0-2.0); EOS % 0.6 % (0-4.5); HEMATOCRIT 34.2 % (35.4-49); HEMOGLOBIN 11.6 GM/dL (11.7-16.9); LYMPH % 14.2 % (8-40); MCHC 33.9 g/dl (32.0-35.9); MEAN CELL VOLUME 91.4 fl (80-96); MEAN PLT VOLUME 8.4 fl (7.5-11.1); MONO % 5.7 % (3.8-10.2); NEUT % 79.3 % (42.8-82.8); PLATELET COUNT 212 10^3/uL (134-434); RBC 3.74 M/mm3 (4.00-5.60); RDW 13.5 % (11.9-15.9); WHITE BLOOD COUNT 11.7 K/mm3 (4.0-10.0)
[2021-03-02] MEDS: HEPARIN NA (PORCINE) 5,000 UNITS/ML 1ML VIAL SQ SCH ×2 (09:00→21:26)
[2021-03-02] MEDS: PANTOPRAZOLE SODIUM 40 MG VIAL IVPUSH SCH (09:01)
[2021-03-02] MEDS: FOLIC ACID 1 MG TABLET (FP) PO SCH (10:59)
[2021-03-02] MEDS: METOPROLOL TARTRATE 50 MG TABLET (FP) PO SCH ×2 (10:59→21:26)
[2021-03-02] MEDS: amLODIPine BESYLATE 5 MG TABLET (FP) PO SCH (10:59)
[2021-03-02] MEDS: VALSARTAN 160 MG TABLET PO SCH (10:59)
[2021-03-02] MEDS: THIAMINE HCL 100 MG TABLET (FP) PO SCH (13:00)
[2021-03-03] MEDS: amLODIPine BESYLATE 5 MG TABLET (FP) PO SCH (10:38)
[2021-03-03] MEDS: HEPARIN NA (PORCINE) 5,000 UNITS/ML 1ML VIAL SQ SCH ×2 (10:38→21:38)
[2021-03-03] MEDS: THIAMINE HCL 100 MG TABLET (FP) PO SCH (10:38)
[2021-03-03] MEDS: FOLIC ACID 1 MG TABLET (FP) PO SCH (10:38)
[2021-03-03] MEDS: VALSARTAN 160 MG TABLET PO SCH (10:38)
[2021-03-03] MEDS: METOPROLOL TARTRATE 50 MG TABLET (FP) PO SCH ×2 (10:38→21:38)
[2021-03-03] MEDS: PANTOPRAZOLE 40 MG TABLET PO SCH (10:38)
[2021-03-03 11:30] LABS: BASO % 0.3 % (0-2.0); EOS % 0.7 % (0-4.5); HEMATOCRIT 31.9 % (35.4-49); HEMOGLOBIN 11.2 GM/dL (11.7-16.9); LYMPH % 17.3 % (8-40); MCH 31.6 pg (25.7-33.7); MCHC 35.2 g/dl (32.0-35.9); MEAN CELL VOLUME 89.8 fl (80-96); MEAN PLT VOLUME 8.3 fl (7.5-11.1); MONO % 5.5 % (3.8-10.2); NEUT % 76.2 % (42.8-82.8); PLATELET COUNT 235 10^3/uL (134-434); RBC 3.55 M/mm3 (4.00-5.60); RDW 13.1 % (11.9-15.9); WHITE BLOOD COUNT 6.9 K/mm3 (4.0-10.0)
[2021-03-04] MEDS: VALSARTAN 160 MG TABLET PO SCH (10:43)
[2021-03-04] MEDS: FOLIC ACID 1 MG TABLET (FP) PO SCH (10:43)
[2021-03-04] MEDS: THIAMINE HCL 100 MG TABLET (FP) PO SCH (10:43)
[2021-03-04] MEDS: PANTOPRAZOLE 40 MG TABLET PO SCH (10:43)
[2021-03-04] MEDS: HEPARIN NA (PORCINE) 5,000 UNITS/ML 1ML VIAL SQ SCH (10:43)
[2021-03-04] MEDS: amLODIPine BESYLATE 5 MG TABLET (FP) PO SCH (10:43)
[2021-03-04] MEDS: METOPROLOL TARTRATE 50 MG TABLET (FP) PO SCH (10:43)
[2021-03-04 20:13] VITALS: BP 130/54; PULSE 73; TEMP 98.5
== END 2021-03-04 21:45 ==
LOC: JER 01:01 → JERBED 21:44 → J4W 03-01 22:48
PROVIDERS: ADMIT Internal Medicine; ATTEND Family Medicine
PROC: 3E023GC Introduction of Other Therapeutic Substance into Muscle, Percutaneous Approach (ICD-10-PCS; principal; 2021-02-28)
PROC: 3E033GC Introduction of Other Therapeutic Substance into Peripheral Vein, Percutaneous Approach (ICD-10-PCS; 2021-02-28)
PROC: 3E0337Z Introduction of Electrolytic and Water Balance Substance into Peripheral Vein, Percutaneous Approach (ICD-10-PCS; 2021-02-28)
DX: R00.0 Tachycardia, unspecified (principal); D72.829 Elevated white blood cell count, unspecified; R73.03 Prediabetes; I10 Essential (primary) hypertension; Z20.822 Contact with and (suspected) exposure to COVID-19; F10.10 Alcohol abuse, uncomplicated; N17.9 Acute kidney failure, unspecified; J32.0 Chronic maxillary sinusitis; R11.2 Nausea with vomiting, unspecified
CPT/HCPCS: 36415; 70450-TC; 71045-TC-FY; 80048; 80053; 81003; 82550; 82553; 83605; 83690; 84484; 85025; 85610; 85651; 85730; 86140; 87040; 87086; 93005; 93010; 96372; 96374; 96375; 96376; 97116-GP; 97162-GP; 99285-25; C9803; G0378; J1644; U0003; U0005